=== PATIENT | female | born 1975 | race Caucasian/White ===

== ENCOUNTER 2023-11-30 09:06 | Outpatient (AMB) | payer MEDICAID, SELFPAY ==
--- NOTE | 2023-11-30 09:23 | MHC.OFFVIS ---
Intake Vital Signs 11/30/23 09:25 Height 5 ft Weight 120 lb BMI 23.4 BP 124/74 Blood Pressure Location Rt brachial Position Sitting Pulse 96 Pulse Source Pulse Oximeter Pulse Oximetry (%) 100 Oxygen Delivery Method Room Air Intake Visit Reasons: ENP- Migraines-LVM Intake Note: Patient presents for migraines . I've been having headaches for 1 year now, I get headaches every day. Allergies fluticasone [From Flonase] Allergy (Severe, Verified 11/30/23 09:26) Nose Bleed Medication List - Last Reconciled 11/30/23 by BHUPENDRA Mukherjee atorvastatin 20 mg PO BEDTIME celecoxib (Celebrex) 100 mg PO BID cetirizine (Zyrtec) 10 mg PO DAILY PRN cholecalciferol (vitamin D3) 25 mcg PO DAILY sumatriptan succinate take 1 tab at onset of headache; if no relief may repeat 1 tab after at least 2 hrs; max = 4 tabs/24 hr PO HPI HPI Comments History of Present Illness Details Left-handed 58-year-old female presents for new pt evaluation of headache disorder. Past medical history is notable for asthma, hyperlipidemia,, sleep difficulties, neck tightness, anxiety. Patient denies history of constipation, thyroid disease, seizure, constipation. Patient reports she has had severe headache on and off since she was age [age] years old. More recently, the headaches worsened after she went into perimenopause. Headache questionnaire: Previous work-up? None Typical headache characteristics: Prodrome symptoms? Unaware Aura? Denies Location, quality, characteristics? Severe top of head, bilateral temporal, or holocranial pressure or stabbing pain Associated symptoms? Photophobia, phonophobia, nausea, not right in space dizziness, activity intolerance, ponytail allodynia, tiredness. Focal weakness, Parethesias, Autonomic s/s? Denies Postdrome? Unsure Triggers? Stress, lack of sleep Any positional, valsalva, exertional, sexual activity triggers? Denies Menstrual triggers? In the past would have 1 bad headache day at the beginning of menstruation Time of day? Often wakes up with a headache at night, occurs at different times throughout the night. Duration? All day Frequency? Twenty-seven of the last 30 days How does headache impact your life? Prevents her from doing her usual activities. 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 Current preventative medication use: OTC magnesium glycinate 525 mg daily Previous preventative medication use: Has used cosmetic Botox in frontal temporal and lateral cervical regions, which has been helpful in the past. Non-pharmacological interventions: Rest She is also prone to dizziness, allergy symptoms. Sleep difficulties: Difficulty initiating and maintaining sleep. Does snore at times. Is often fatigued and tired. Usual exercise: Not much Family planning? N/a Family history of migraine or other headache disorder? Cousins and an aunt PFSH Surgical History (Updated 11/30/23 @ 09:28 by HOLLY Rangel) H/O tubal ligation Family History Father HTN (hypertension) Hyperlipidemia Mother HTN (hypertension) Hyperlipidemia Diabetes Social History (Updated 08/20/23 @ 09:14 by HOLLY Rangel) Alcohol intake: never Patient Tobacco Use Status: Current everyday Tobacco user Review of Systems Const Details: See scanned ROS form Physical Exam Vital Signs: Last Vital Signs Pulse 96 11/30/23 09:25 BP 124/74 11/30/23 09:25 Pulse Ox 100 11/30/23 09:25 Oxygen Delivery Method Room Air 11/30/23 09:25 BMI result Body Mass Index 23.4 Const Orientation/consciousness: patient oriented x3 HEENT Other: No palpable scalp tenderness. Head: Yes normocephalic Resp Effort & Inspection: normal respiratory effort and able to speak in complete sentences Neuro General: patient oriented x3 Cranial nerves: Yes CN's II-XII intact bilaterally Cognition (Neuro): normal cognition Gait exam (Neuro): Normal gait present Motor exam (neuro): 5/5 motor strength present throughout Deep tendon reflexes (DTR's): Right triceps reflex intensity grade: 2+, Left triceps reflex intensity grade: 2+, Rt Biceps (C5, C6): 2+, Left biceps reflex intensity grade: 2+, Right brachioradialis reflex intensity grade: 2+, Left brachioradialis reflex intensity grade: 2+, Right patellar reflex intensity grade: 2+ and Left patellar reflex intensity grade: 2+ Coordination: [id number] test normal, tandem gait normal and Romberg test negative Pupils: Normal pupillary reactivity/response: bilateral Psych Appearance: grossly normal Mental Status: mental status grossly normal Speech and movement: Normal speech and movement present Affect: normal affect Attitude: cooperative Thought process: Normal thought process present Assessment & Plan Assessment & Plan (1) Migraine without aura: Code(s): G43.009 - Migraine without aura, not intractable, without status migrainosus (2) Cervicalgia: Code(s): M54.2 - Cervicalgia Plan For overall headache management: Discussed importance of good self-care, including but not limited to maintaining a healthy diet, adequate fluid intake, adequate sleep, and engaging in regular physical activity. For headache triggers: Track headaches. Refer to PT for cervicalgia and headache. Monitor sleep difficulty For acute headache treatment: Discussed importance of taking acute medications at the first sign of headache, however stressed importance of avoiding acute medication overuse (especially with combined headache medications). Increase sumatriptan to 50-100 mg as needed, may repeat in 2 hours. Max 200 mg per day. Reviewed potential adverse effects of triptans, including but not limited to nausea, fatigue, chest tightness/tingling (usually passes within a few minutes), medication overuse headaches. Previous acute migraine medication trials: Sumatriptan 25 mg- ineffective. Fioricet- not effective. Acute migraine medication contraindications: None at this time For headache prevention medication: Discussed that preventative medications should be taken routinely as prescribed for best effect, it may take several weeks for full effect to take effect. Start Riboflavin 400mg qam Continue OTC Magnesium glycinate 525 mg qhs Start amitriptyline 10-20 mg q.h.s. Previous migraine prevention medication trials: Cosmetic Botox- was helpful. Migraine prevention medication contraindications: None at this time Pt to follow-up in 2 months or sooner prn. This note is constructed using voice recognition software. While every effort has been made to ensure accuracy, collet maker errors may have been included. Orders: Orders PT Evaluation and Treatment 11/30/23 G43.009 - Migraine without aura, not intractable, without status migrainosus, M54.2 - Cervicalgia Medications: New riboflavin (vitamin B2) 400 mg PO DAILY 30 tabs 6RF 30 days amitriptyline 10 - 20 mg (1 - 2 x 10 mg) PO BEDTIME 60 tabs 3RF 30 days Coding Level of Care Code New Pt Level 4 (87231) Diagnoses Migraine without aura G43.009 Cervicalgia M54.2
[2023-11-30 09:25] VITALS: BP 124/74; PULSE 96; O2SAT 100; BMI 23.4
== END 2023-11-30 10:35 | disposition home or self-care (01) ==
PROVIDERS: PCP Internal Medicine; Visit Provider Nurse Practitioner Family
DX: G43.009 Migraine without aura, not intractable, without status migrainosus (principal); M54.2 Cervicalgia
CPT/HCPCS: 99204

== ENCOUNTER → 2023-11-30 09:06 | Outpatient (BNVA) | payer MEDICAID, SELFPAY | PROVIDERS: PCP Internal Medicine; Visit Provider Nurse Practitioner Family | DX: G43.009 Migraine without aura, not intractable, without status migrainosus (principal); M54.2 Cervicalgia | CPT/HCPCS: 99212 ==

== ENCOUNTER 2024-01-24 07:41 | Outpatient (AMB) | payer MEDICAID, SELFPAY ==
--- NOTE | 2024-01-24 07:41 | A.OFFVIS_ITS ---
Intake Intake Visit Reasons: 8 wks f/u-Conf Intake Note: Patient presents for 8 weeks follow up. migraine medication not working. patient has a migraine today Allergies fluticasone [From Flonase] Allergy (Severe, Verified 01/24/24 07:41) Nose Bleed Medication List - Last Reconciled 01/24/24 by BHUPENDRA Mukherjee amitriptyline 10 - 20 mg (1 - 2 x 10 mg) PO BEDTIME 30 days atorvastatin 20 mg PO BEDTIME celecoxib (Celebrex) 100 mg PO BID cetirizine (Zyrtec) 10 mg PO DAILY PRN cholecalciferol (vitamin D3) 25 mcg PO DAILY riboflavin (vitamin B2) 400 mg PO DAILY 30 days sumatriptan succinate take 1 tab at onset of headache; if no relief may repeat 1 tab after at least 2 hrs; max = 4 tabs/24 hr PO HPI HPI Comments History of Present Illness Details 48-yr-old female presents for f/u televi gaviota visit via [employer]. Pt denies any significant interval medical changes. Pt reports she initially had good effect from starting B2 and Riboflavin, but the effect waned. Pt is now having 4 migraine headcahe days per week. Tolerating Amitriptyline 20mg well and B2 well. She never received the increased Sumatriptan. She is using Tylenol prn w/ some effect. Baseline headache characteristics: Severe top of head, bilateral temporal, or holocranial pressure or stabbing pain a/w photophobia, phonophobia, nausea, not right in space dizziness, activity intolerance, ponytail allodynia, tiredness. [facility] Surgical History H/O tubal ligation Family History Father HTN (hypertension) Hyperlipidemia Mother HTN (hypertension) Hyperlipidemia Diabetes Social History (Updated 08/20/23 @ 09:14 by HOLLY Rangel) Alcohol intake: never Patient Tobacco Use Status: Current everyday Tobacco user Physical Exam Const General: cooperative and no acute distress Orientation/consciousness: patient oriented x3 Resp Effort & Inspection: normal respiratory effort and able to speak in complete sentences Neuro General: patient oriented x3 Cognition (Neuro): normal cognition Psych Appearance: grossly normal Mental Status: mental status grossly normal Speech and movement: Normal speech and movement present Affect: normal affect Attitude: cooperative Assessment & Plan Assessment & Plan (1) Migraine without aura: Code(s): G43.009 - Migraine without aura, not intractable, without status migrainosus (2) Cervicalgia: Code(s): M54.2 - Cervicalgia Plan For overall headache management: Continue to optimize good self-care, including but not limited to maintaining a healthy diet, adequate fluid intake, adequate sleep, and engaging in regular physical activity. Track headaches Monitor cervicalgia. Monitor sleep difficulty ? For acute headache treatment: Discussed importance of taking acute medications at the first sign of headache, however stressed importance of avoiding acute medication overuse (especially with combined headache medications). Again increase sumatriptan to 50-100 mg as needed, may repeat in 2 hours. Max 200 mg per day. Reviewed potential adverse effects of triptans, including but not limited to nausea, fatigue, chest tightness/tingling (usually passes within a few minutes), medication overuse headaches. Previous acute migraine medication trials: Sumatriptan 25 mg- ineffective. Fioricet- not effective. Acute migraine medication contraindications: None at this time ? For headache prevention medication: Discussed that preventative medications should be taken routinely as prescribed for best effect, it may take several weeks for full effect to take effect. Continue Riboflavin 400mg qam Continue OTC Magnesium glycinate 525 mg qhs Increase amitriptyline from 20 mg q.h.s. to 25-50mg qhs Previous migraine prevention medication trials: Cosmetic Botox- was helpful. Migraine prevention medication contraindications: None at this time ? Pt to follow-up in 4 months or sooner prn. Medications: New sumatriptan succinate (0.5 - 1 x 100 mg) 50 - 100 mg orally at onset of headache, may repeat in 2 hrs PRN; max 2 tabs per day or 4 tabs/week (may take with Tylenol) 30 days 12 tabs 6RF migraine headache amitriptyline 25 - 50 mg (1 - 2 x 25 mg) PO BEDTIME 30 days 60 tabs 3RF Discontinued amitriptyline Discontinued Reason: Doctor's Order 10 - 20 mg (1 - 2 x 10 mg) PO BEDTIME 30 days 60 tabs 3RF Telehealth Telehealth Location of provider rendering services: practice address Location of patient: address on file Patient Identification confirmed using: Name, : Yes Telehealth method: video Patient verbally consented to treatment: Yes Patient verbally consented to billing insurance company: Yes Patient informed of any privacy concerns related to visit: Yes Minutes spent on Phone/Video with Pt.: 11 Coding Level of Care Code Tele Est Pt Level 4 (69484) Diagnoses Migraine without aura G43.009 Cervicalgia M54.2
== END 2024-01-24 10:37 | disposition home or self-care (01) ==
LOC: HO.HSMS 07:41
PROVIDERS: PCP Internal Medicine; Visit Provider Nurse Practitioner Family
DX: G43.009 Migraine without aura, not intractable, without status migrainosus (principal); M54.2 Cervicalgia
CPT/HCPCS: 99214

== ENCOUNTER → 2024-01-24 07:41 | Outpatient (BNVA) | payer MEDICAID, SELFPAY | PROVIDERS: PCP Internal Medicine; Visit Provider Nurse Practitioner Family ==

== ENCOUNTER 2024-06-26 09:52 | Outpatient (AMB) | payer MEDICAID, SELFPAY ==
[2024-06-26 10:03] VITALS: PULSE 87; O2SAT 98; BMI 24.4
--- NOTE | 2024-06-26 10:03 | MHC.OFFVIS ---
Vital Signs 06/26/24 10:03 Height 5 ft Weight 125 lb BMI 24.4 Pulse 87 Pulse Source Pulse Oximeter Pulse Oximetry (%) 98 Oxygen Delivery Method Room Air Intake Visit Reasons: 5 Month F/U Intake Note: patient presents for 5 month follow up. migraines are still an issue sumatriptan wasnt tolerated Allergies fluticasone [From Flonase] Allergy (Severe, Verified 06/26/24 10:04) Nose Bleed Medication List - Last Reconciled 06/26/24 by BHUPENDRA Mukherjee amitriptyline 25 - 50 mg (1 - 2 x 25 mg) PO BEDTIME 30 days atorvastatin 20 mg PO BEDTIME celecoxib (Celebrex) 100 mg PO BID cetirizine (Zyrtec) 10 mg PO DAILY PRN cholecalciferol (vitamin D3) 25 mcg PO DAILY riboflavin (vitamin B2) 400 mg PO DAILY 30 days sumatriptan succinate 50 - 100 mg orally at onset of headache, may repeat in 2 hrs PRN; max 2 tabs per day or 4 tabs/week (may take with Tylenol) 30 days HPI Comments Details: 48-yr-old female presents for f/u visit for migraine. Pt denies any significant interval medical changes. Pt reports she initially had good effect from starting B2 and Riboflavin, but the effect waned. Pt is now having 2-3 migraine headache days per week, but during her menses, she has increased severity and frequency of migraine attacks up to 5 days in a row. Taking Amitriptyline 25mg well and B2. Having some increased constipation since increasing Amitriptyline. Amitriptyline helps w/ sleep as well. She tried Sumatriptan 100mg x's 2, which she did not tolerate- caused severe dizziness.. She is using Tylenol prn w/ some effect. States her neck is good right now. Baseline headache characteristics: Severe top of head, bilateral temporal, or holocranial pressure or stabbing pain a/w photophobia, phonophobia, nausea, not right in space dizziness, activity intolerance, ponytail allodynia, tiredness. [facility] Surgical History H/O tubal ligation Family History Father HTN (hypertension) Hyperlipidemia Mother HTN (hypertension) Hyperlipidemia Diabetes Social History Alcohol intake: never Patient Tobacco Use Status: Current everyday Tobacco user Physical Exam Vital Signs: Last Vital Signs Pulse 87 06/26/24 10:03 Pulse Ox 98 06/26/24 10:03 Oxygen Delivery Method Room Air 06/26/24 10:03 BMI result Body Mass Index 24.4 Const General: cooperative and no acute distress Orientation/consciousness: patient oriented x3 Resp Effort & Inspection: normal respiratory effort and able to speak in complete sentences Neuro General: patient oriented x3 Cranial nerves: Yes CN's II-XII intact bilaterally Cognition (Neuro): normal cognition Psych Appearance: grossly normal Mental Status: mental status grossly normal Speech and movement: Normal speech and movement present Affect: normal affect Attitude: cooperative Assessment & Plan Assessment & Plan (1) Migraine without aura: Code(s): G43.009 - Migraine without aura, not intractable, without status migrainosus Category: Medical (2) Cervicalgia: Code(s): M54.2 - Cervicalgia Category: Medical (3) Menstrual migraine: Code(s): G43.829 - Menstrual migraine, not intractable, without status migrainosus Category: Medical Plan For overall headache management: Continue to optimize good self-care, including but not limited to maintaining a healthy diet, adequate fluid intake, adequate sleep, and engaging in regular physical activity. Track headaches Monitor cervicalgia. Monitor sleep difficulty ? For acute migraine headache treatment: Discussed importance of taking acute medications at the first sign of headache, however stressed importance of avoiding acute medication overuse. Stop sumatriptan 100 mg- not tolerated, caused dizziness. Trila Nrartriptan 2.5mg at onet of candy MR in 4 hrs, may 5mg/day. Reviewed potential adverse effects of triptans, including but not limited to nausea, fatigue, chest tightness/tingling (usually passes within a few minutes), medication overuse headaches. Previous acute migraine medication trials: Sumatriptan 25 mg- ineffective. Sumatriptan 100 mg- not tolerated, caused dizziness. Fioricet- not effective. Acute migraine medication contraindications: None at this time For menstrual migraine treatment: Trial taking Advil 400-600mg bid and Naratriptan 2.5mg prn- starting the day before onset of menses. ? For headache prevention medication: Discussed that preventative medications should be taken routinely as prescribed for best effect, it may take several weeks for full effect to take effect. Continue Riboflavin 400mg qam Continue OTC Magnesium glycinate 525 mg qhs Continue amitriptyline 25 qhs- would not increase further d/t risk for worsening constipation. Start Propranolol 10mg po bid- monitor for lightheadedness. Take water, fluids, electrolyte replacement beverage. Previous migraine prevention medication trials: Cosmetic Botox- was helpful. Migraine prevention medication contraindications: None at this time ? Pt to follow-up in 6 months or sooner prn. Medications: New propranolol 10 mg PO BID 30 days 60 tabs 3RF G43.009 - Migraine without aura, not intractable, without status migrainosus naratriptan take 1/2 - 1 tab at onset of headache; if no relief may repeat 1 tab after at least 4 hrs; max = 2 tabs/24 hrs orally PRN; 30 days 12 tabs 6RF migraine headache G43.009 - Migraine without aura, not intractable, without status migrainosus clonidine HCl 0.1 mg PO BEDTIME Changed From amitriptyline 25 - 50 mg (1 - 2 x 25 mg) PO BEDTIME 30 days 60 tabs 3RF To amitriptyline 25 mg PO BEDTIME 30 days 30 tabs 6RF Refilled riboflavin (vitamin B2) 400 mg PO DAILY 30 days 30 tabs 6RF Discontinued sumatriptan succinate Discontinued Reason: Doctor's Order (0.5 - 1 x 100 mg) 50 - 100 mg orally at onset of headache, may repeat in 2 hrs PRN; max 2 tabs per day or 4 tabs/week (may take with Tylenol) 30 days 12 tabs 6RF migraine headache Coding Level of Care Code Est Pt Level 4 (85719) Diagnoses Migraine without aura G43.009 Cervicalgia M54.2 Menstrual migraine G43.829
== END 2024-06-26 10:51 | disposition home or self-care (01) ==
PROVIDERS: PCP Internal Medicine; Visit Provider Nurse Practitioner Family
DX: G43.009 Migraine without aura, not intractable, without status migrainosus (principal); M54.2 Cervicalgia; G43.829 Menstrual migraine, not intractable, without status migrainosus
CPT/HCPCS: 99214

== ENCOUNTER → 2024-06-26 09:52 | Outpatient (BNVA) | payer MEDICAID, SELFPAY | PROVIDERS: PCP Internal Medicine; Visit Provider Nurse Practitioner Family | DX: G43.009 Migraine without aura, not intractable, without status migrainosus (principal); G43.829 Menstrual migraine, not intractable, without status migrainosus; M54.2 Cervicalgia | CPT/HCPCS: 99212 ==

== ENCOUNTER 2024-12-31 15:02 | Outpatient (AMB) | payer MEDICAID, SELFPAY ==
[2024-12-31 15:07] VITALS: BP 130/84; PULSE 104; O2SAT 95; BMI 26.0
--- NOTE | 2024-12-31 15:07 | MHC.OFFVIS ---
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: No Accompanied by: Self / Same As Patient Allergies fluticasone [From Flonase] Allergy (Severe, Verified 12/31/24 15:08) Nose Bleed Medication List - Last Reconciled 12/31/24 by BHUPENDRA Mukherjee amitriptyline 25 mg PO BEDTIME 30 days atorvastatin 20 mg PO BEDTIME celecoxib (Celebrex) 100 mg PO BID 30 days cetirizine (Zyrtec) 10 mg PO DAILY PRN cholecalciferol (vitamin D3) 25 mcg PO DAILY clonidine HCl 0.1 mg PO BEDTIME galcanezumab-gnlm (Emgality Pen) 240 mg (2 mL) subcut ONCE 30 days naratriptan take 1/2 - 1 tab at onset of headache; if no relief may repeat 1 tab after at least 4 hrs; max = 2 tabs/24 hrs orally PRN; 30 days propranolol 10 mg PO BID 30 days riboflavin (vitamin B2) 400 mg PO DAILY 30 days HPI Comments Details: Chief Complaint Migraine headache. History of Present Illness The patient is a 49-year-old female presenting with chronic migraine. Reported daily migraines have increased in frequency. Denies recent infection, accident, or known precipitating cause for the increase in migraine frequency. States her neck symptoms continue to be better. Dietary modifications were attempted. Anxiety exacerbates migraines. Propranolol caused mood disturbances and was stopped. Sumatriptan caused dizziness And naratriptan was not tolerated. Current medications include vitamin B2 and magnesium. Anxiety and menopausal symptoms are also present, affecting her condition. historically has menstrual migraine. Constipation occurs sporadically. she also endorses snoring, for sleep quality, fragmented sleep, daytime fatigue. Note so her daughter has sleep apnea and uses a CPAP machine. Family History - Daughter with sleep apnea Review of Systems - Gastrointestinal: Reports constipation And gastritis worsened by NSAIDs Headache Lifestyle Factors - Caffeine intake of half a cup daily in the morning. - Adjusted diet to very limited, restricted, consuming smaller portions food, , with coffee in the morning. Attempts to avoid rice and pasta due to perceived triggers, eating more fish like salmon, and self-preparing foods. - Anxiety influences daily life activities and migraine onset. PFSH Surgical History H/O tubal ligation Family History Father HTN (hypertension) Hyperlipidemia Mother HTN (hypertension) Hyperlipidemia Diabetes Social History Alcohol intake: never Patient Tobacco Use Status: Current everyday Tobacco user Physical Exam Vital Signs: Last Vital Signs Pulse 104 H 12/31/24 15:07 BP 130/84 12/31/24 15:07 Pulse Ox 95 12/31/24 15:07 Oxygen Delivery Method Room Air 12/31/24 15:07 BMI result Body Mass Index 26.0 Const General: cooperative and no acute distress Orientation/consciousness: patient oriented x3 Resp Effort & Inspection: normal respiratory effort and able to speak in complete sentences Neuro General: patient oriented x3 Cranial nerves: Yes CN's II-XII intact bilaterally Cognition (Neuro): normal cognition Psych Appearance: grossly normal Mental Status: mental status grossly normal Speech and movement: Normal speech and movement present Affect: normal affect Attitude: cooperative Assessment & Plan Assessment & Plan (1) Migraine without aura: Code(s): G43.009 - Migraine without aura, not intractable, without status migrainosus Category: Medical (2) Cervicalgia: Code(s): M54.2 - Cervicalgia Category: Medical (3) Menstrual migraine: Code(s): G43.829 - Menstrual migraine, not intractable, without status migrainosus Category: Medical Plan During our discussion, I explained that persistent daily migraines might be exacerbated by anxiety and hormonal changes from menopause. We explored strategies to optimize migraine prophylaxis, such as trying a CGRP MaB, which is a migraine specific treatment strategy. The necessity of dietary nourishment was stressed to prevent migraine triggers. I instructed on a sleep study to exclude apnea, a potential migraine factor. The patient agreed to trial Celebrex given its lower risk of gastrointestinal problems relative to other NSAIDs. We discussed follow-up care to assess for improved symptoms and refine treatment strategies. Patient was informed and verbally consented to the use of an ambient scribe for clinic note documentation during this visit. Plan: For overall headache management: Continue to optimize good self-care, including but not limited to maintaining a healthy diet, adequate fluid intake, adequate sleep, and engaging in regular physical activity. Track headaches Monitor cervicalgia. Patient advised to undergo home sleep study to assess for sleep apnea ? For acute migraine headache treatment: Discussed importance of taking acute medications at the first sign of headache, however stressed importance of avoiding acute medication overuse. Stop sumatriptan 100 mg- not tolerated, caused dizziness. Stop Nartriptan 2.5mg-not tolerated. Use Tylenol 650-a 1000 mg every 4-6 hours as needed. May use Celebrex 100 mg twice a day as needed, as this may be better tolerated than ibuprofen or naproxen. Previous acute migraine medication trials: Sumatriptan 25 mg- ineffective. Sumatriptan 100 mg- not tolerated, caused dizziness. Naratriptan not tolerated. Fioricet- not effective. Acute migraine medication contraindications: None at this time For menstrual migraine treatment: Trial taking Advil 400-600mg bid and Naratriptan 2.5mg prn- starting the day before onset of menses. ? For headache prevention medication: Discussed that preventative medications should be taken routinely as prescribed for best effect, it may take several weeks for full effect to take effect. Continue Riboflavin 400mg qam Continue OTC Magnesium glycinate 525 mg qhs Continue amitriptyline 25 qhs- would not increase further d/t risk for worsening constipation. Discontinue Propranolol 10mg po bid- not tolerated. Start Emgality 120mg/ml auto-injection: Loading dose: 240mg (2 120mg/ml auto-injections) via subcutaneous injection in 2 different sites). Then 30 days after loading dose, start Maintenance dose: 120mg (120mg/ml autoinjector) subcutaneous injection every month. 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 Important considerations: Emgality will likely require insurance prior authorization prior to receiving it from the pharmacy. Potential side effects include allergic reaction and injection site reactions. Emgality injection training educational video is available to view on [employer] Store Emgality in the refrigerator in it's original packaging in order to protect from light. Remove Emgality at least 1 hour prior to taking the injection. Emgality can be left out of the fridge for?up to 7 days at a temperature not above 86?F. If either of these conditions are exceeded, then Emgality must be thrown away. Once Emgality has been stored out of refrigeration, do not place it back in the refrigerator. Previous migraine prevention medication trials: Cosmetic Botox- was helpful. Propranolol 10 mg p.o. b.i.d.-not tolerated. Migraine prevention medication contraindications: Would avoid Aimovig or atogepant due to risk for worsening constipation. ? Pt to follow-up in 6 months or sooner prn. Orders: Orders RT home sleep study Today G47.9 - Sleep disorder, unspecified, R06.83 - Snoring, R53.83 - Other fatigue Medications: New galcanezumab-gnlm (Emgality Pen) Loading dose: 120 mg subcu injection x2 in alternate sites (total 240 mg). To be followed by maintenance dose of 120 mg subcu q.month. 240 mg (2 mL) subcut ONCE 2 mL 0RF 30 days Changed From celecoxib (Celebrex) 100 mg PO BID To celecoxib (Celebrex) 100 mg PO BID 60 caps 4RF pain 30 days Coding Level of Care Code Est Pt Level 4 (01187) Diagnoses Migraine without aura G43.009 Cervicalgia M54.2 Menstrual migraine G43.829
--- OUTSIDE RECORDS SUMMARY | 2024-12-31 18:12 | XMS_ITS | Clinical Summary ---
Author Organization [facility] it Address [id number] [place] [id number] Care Team Providers [employer] Organizer Name Role Phone Unavailable Primary Care Provider Unavailabl e Social History Tobacco Use Types Packs/Day Years Used Date Smoking Tobacco: Never Assessed Comments Unknown Sex and Gender Information Value Date Recorded Sex Assigned at Not on file Legal Sex Female 6:34 AM EST Gender Identity Not on file Sexual Orientation Not on file Plan of Treatment Health Maintenance Due Date Last Done Comments DTaP,Tdap,and Td Vaccines (1 - Tdap) 1992 Hepatitis B Vaccines (1 of 3 - 19+ 3-dose series) 1992 Cervical Cancer Screening: P ap Smear 1994 Colorectal Cancer Screening: Colonoscopy 10/01/2022 Depression Screening 10/01/2022 HIV Screening 10/01/2022 Hepatitis C Screening 10/01/2022 Social Influencers of Health Screening 10/01/2022 Breast Cancer Screening 12/25/2022 12/25/19 21, 12/22/2019 Pneumococcal Vaccine: 50+ Years (1 of 1 - PCV) 2023 Zoster Vaccines (1 of 2) 2023 COVID-19 Vaccine ( - 2023-2 5 season) 2024 Influenza Vaccine (#1) 2024 HIB Vaccines Aged Out No longer eligi ble based on patient's age to complete this topic HPV Vaccines Aged Out No longer eligi ble based on patient's age to complete this topic Hepatitis A Vaccines Aged Out No long er eligible based on patient's age to complete this topic IPV Vaccines Aged Out No longer eligi ble based on patient's age to complete this topic MMR Vaccines Aged Out No longer eligi ble based on patient's age to complete this topic Meningococcal ACWY Vaccine Aged Out N o longer eligible based on patient's age to complete this topic Meningococcal B Vacine Aged Out No lo nger eligible based on patient's age to complete this topic Pneumococcal Vaccine: Pediatrics (0 to 5 Years) and At-Risk Patients (6 to 64 Years) Aged Out No longer eligible b ased on patient's age to complete this topic RSV Immunization Patients Under 20 months Aged Out No longer eligible b ased on patient's age to complete this topic Varicella Vaccines Aged Out No longer eligible based on patient's age to complete this topic Procedures Procedure Name Priority Date/Time Associated Diagnosis Comments [facility] SCREENING DIGITAL Routine 12/25/2020 12:56 PM EST Encounter for screening mammogram for malignant neoplasm of breast from Last 3 Months or Most Recently Relevant to Health Maintenance Results * [facility] SCREENING DIGITAL (12/25/2020 12:56 PM EST) Anatomical Region Laterality Modality Mammography 12/23/2020 8:54 AM EST Narrative 12/25/2020 12:56 PM EST [facility] Diagnostic Imaging Department [address] [place] [address] Patient: ??BELIA CANNON ?/Age/Sex: 1975 - 45 - F Unit#: ??[id number] ? Location/Status: ??SPDIMAM/REG CLI ? Mnemonic/Ordering Site: ??DIGSC/SPMAM Ordering Physician: ??DOM OLGUIN MD Ying Screening Digital - 12/25/20 - 1020 EXAM: [facility] Screening Digital EXAM DATE AND TIME: 12/25/2020 10:21 AM HISTORY: ??Annual screening mammography COMPARISON: ??12/02/2019, 06/02/2015 TECHNIQUE: CC and MLO views of both breasts were obtained using full field digital mammography. Bilateral digital breast tomosynthesis was performed in the MLO projection. Computer aided detection with the [employer]-H was employed. TISSUE DENSITY: c. The breasts are heterogeneously dense, which may obscure small masses. FINDINGS: In the 10 o'clock position of the right breast, 7.5 cm from the nipple there is a new 6 x 6 mm partially obscured nodule with posteriorly convex borders requir ing spot compression and CC tomography. The left breast has no suspicious masses, grouped microcalcifications, or areas of architectural distortion are seen. The skin and vascularity are unremarkable. IMPRESSION: New 6 x 6 mm right breast mass with posteriorly convex borders partially obscured by overlying parenchyma requiring CC tomography and spot compression. Ultrasound should follow as clinically indicated. A negative mammogram in the presence of a clinically suspicious palpable abnormality does not preclude the possibility of malignancy or alter the indications for biopsy. BI-RADS: ??Category 0: Incomplete - Need Additional Imaging Evaluation RECOMMENDATION(S): 1: Special mammographic view(s) needed RIGHT as soon as possible [id number], [id number], [id number] Dictating Physician: ??ROBI WALLACE MD Electronically Signed by: ??ROBI WALLACE MD Dic Date/Time: ??12/25/20 1249 Sign date/Time: ??12/25/20 1256 Procedure Note Deepali Wallace MD - 10/17/2022 [facility] Diagnostic Imaging Department [address] [place] [address] [id number] Patient: BELIA CANNON.O.B./Age/Sex: 1975 - 45 - F Unit#: [id number] [facility] Mn[facility]onic/Ordering Site: [facility] Ordering Physician: DOM OLGUIN MD [facility] Screening Digital - 12/25/20 - 1020 EXAM: [facility] Screening Digital EXAM DATE AND TIME: 12/25/2020 10:21 AM HISTORY: Annual screening mammography COMPARISON: 12/02/2019, 06/02/2015 TECHNIQUE: CC and MLO views of both breasts were obtained using fullfield digital mammography. Bilateral digital breast tomosynthesis was performedin the MLO projection. Computer aided detection with the [employer] employed. TISSUE DENSITY: c. The breasts are heterogeneously dense, which mayobscure small masses. FINDINGS: In the 10 o'clock position of the right breast, 7.5 cm from the nipplethere is a new 6 x 6 mm partially obscured nodule with posteriorly convex bordersrequir ing spot compression and CC tomography. The left breast has no suspicious masses, grouped microcalcifications, orareas of architectural distortion are seen. The skin and vascularity areunremarkable. IMPRESSION: New 6 x 6 mm right breast mass with posteriorly convex borders partially obscured by overlying parenchyma requiring CC tomography and spotcompression. Ultrasound should follow as clinically indicated. A negative mammogram in the presence of a clinically suspicious palpable abnormality does not preclude the possibility of malignancy or alter the indications for biopsy. BI-RADS: Category 0: Incomplete - Need Additional Imaging Evaluation RECOMMENDATION(S): 1: Special mammographic view(s) needed RIGHT as soon as possible [id number], [id number], [id number] Dictating Physician: ROBI WALLACE MD Electronically Signed by: ROBI WALLACE MD Dic Date/Time: 12/25/20 1249 Sign date/Time: 12/25/20 1365 Dom STERN BI PROCEDURES Final Resul t from Last 3 Months or Most Recently Relevant to Health Maintenance
== END 2024-12-31 15:48 | disposition home or self-care (01) ==
PROVIDERS: PCP Internal Medicine; Visit Provider Nurse Practitioner Family
DX: G43.009 Migraine without aura, not intractable, without status migrainosus (principal); M54.2 Cervicalgia; G43.829 Menstrual migraine, not intractable, without status migrainosus
CPT/HCPCS: 99214

== ENCOUNTER → 2024-12-31 15:02 | Outpatient (BNVA) | payer MEDICAID, SELFPAY | PROVIDERS: PCP Internal Medicine; Visit Provider Nurse Practitioner Family | DX: M54.2 Cervicalgia (principal); G43.829 Menstrual migraine, not intractable, without status migrainosus; G47.9 Sleep disorder, unspecified; R06.83 Snoring; R53.83 Other fatigue | CPT/HCPCS: 99212 ==

== ENCOUNTER → 2025-03-17 10:37 | Outpatient (REF) | payer MEDICAID, SELFPAY ==
--- OUTSIDE RECORDS SUMMARY | 2025-03-17 11:55 | XMS_ITS | Clinical Summary ---
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 Name Role Phone JaniaDom tim Primary Care Provider [phone] Social History Tobacco Use Types Packs/Day Years Used Date Smoking Tobacco: Never Assessed Comments Unknown Sex and Gender Information Value Date Recorded Sex Assigned at Not on file Legal Sex Female 6:34 AM EST Gender Identity Not on file Sexual Orientation Not on file Plan of Treatment Health Maintenance Due Date Last Done Comments Hepatitis B Vaccines (1 of 3 - 19+ 3-dose series) 1992 Cervical Cancer Screening: P ap Smear 1994 Pneumococcal Vaccine: 50+ Years (2 of 2 - PCV) 02/04/2020 02/03/2019 Pneumococcal Vaccine: Pediatrics (0 to 5 Years) and At-Risk Patients (6 to 64 Years) (2 of 2 - PCV) 02/04/2020 02/03/2019 Colorectal Cancer Screening: Colonoscopy 10/01/2022 Depression Screening 10/01/2022 HIV Screening 10/01/2022 Hepatitis C Screening 10/01/2022 Social Influencers of Health Screening 10/01/2022 Breast Cancer Screening 12/25/2022 12/25/19 21, 12/22/2019 Zoster Vaccines (1 of 2) 2023 COVID-19 Vaccine (2023-2 5 season) 2024 11/16/2021, 02/25/2021, 02/04/2021 Influenza Vaccine (Season Ended) 2025 DTaP,Tdap,and Td Vaccines (2 - Td or Tdap) 02/03/2029 02/03/2019 Cholesterol Screening (Lipid Panel) 02/09/2030 02/09/2025 HIB Vaccines Aged Out No longer eligi [...] age to complete this topic Meningococcal B Vaccine Aged Out No l onger eligible based on patient's age to complete this topic RSV Immunization Patients Under 20 months Aged Out No longer eligible b ased on patient's age to complete this topic Varicella Vaccines Aged Out No longer eligible based on patient's age to complete this topic Procedures Procedure Name Priority Date/Time Associated Diagnosis Comments CBC WITH AUTO DIFFERENTIAL Routine 02/09/2025 2:12 PM EDT ALD (adrenoleukodystro phy) ([facility] V24) Active asthma Weight gain Routine general medical examination at a health care facility HEMOGLOBIN A1C Routine 02/09/2025 2:12 PM EDT ALD (adrenoleukodystro phy) ([facility] V24) Active asthma Weight gain Routine general medical examination at a health care facility CBC AND DIFFERENTIAL Routine 02/09/2025 2:12 PM EDT ALD (adrenoleukodystro phy) ([facility] V24) Active asthma Weight gain Routine general medical examination at a health care facility THYROID STIMULATING HORMONE Routine 02/09/2025 2:12 PM EDT ALD (adrenoleukodystro phy) ([facility] V24) Active asthma Weight gain Routine general medical examination at a health care facility BASIC METABOLIC PANEL Routine 02/09/2025 2:12 PM EDT ALD (adrenoleukodystro phy) ([facility] V24) Active asthma Weight gain Routine general medical examination at a health care facility ASPARTATE AMINOTRANSFERASE Routine 02/09/2025 2:12 PM EDT ALD (adrenoleukodystro phy) ([facility] V24) Active asthma Weight gain Routine general medical examination at a health care facility ALANINE AMINOTRANSFERASE Routine 2:12 PM EDT ALD (adrenoleukodystro phy) ([facility] V24) Active asthma Weight gain Routine general medical examination at a health care facility LIPID PANEL WITH REFLEX TO DIRECT LDL Routine 02/09/2025 2:12 PM EDT ALD (adrenoleukodystro phy) ([facility] V24) Active asthma Weight gain Routine general medical examination at a health care facility YING SCREENING DIGITAL Routine 12/25/2020 12:56 PM EST Encounter for screening mammogram for malignant neoplasm of breast from Last 3 Months or Most Recently Relevant to Health Maintenance Results * (ABNORMAL) Lipid panel with reflex to direct LDL (02/09/2025 2:12 PM EDT) Cholesterol 240(H) 0 - 200 mg/dL LAB CHEMISTRY METHOD 02/09/2025 5:06 PM [facility] Triglycerides 395(H) 0 - 150 mg/dL LAB CHEMISTRY METHOD 02/09/2025 5:06 PM [facility] HDL 39(L) >=40 mg/dL LAB CHEMISTRY METHOD 02/09/2025 5:06 PM [facility] LDL Calculated 122(H) 0 - 100 mg/dL LAB CHEMISTRY METHOD 02/09/2025 5:06 PM [facility] VLDL Cholesterol Hunter 79 mg/dL LAB CHEMISTRY METHOD 02/09/2025 5:06 PM [facility] Non HDL Chol. (LDL+VLDL) 201(H) <145 mg/dL LAB CHEMISTRY METHOD 02/09/2025 5:06 PM [facility] Chol/HDL Ratio 6.2(H) 0.0 - 4.4 LAB CHEMISTRY METHOD 02/09/2025 5:06 PM EDT [facility] Blood Venous blood specimen / Unknown Venipuncture / Unknown 02/09/2025 2:12 PM EDT 02/09/2025 2:12 PM EDT us [facility] Diaz [employer] SALESPERSON LAB BLOOD ORDERABLES Final Resul t [facility] [address] [place] [address], [place] [phone] * (ABNORMAL) CBC auto differential (02/09/2025 2:12 PM EDT) WBC 11.3(H) 4.8 - 10.8 K/mcL LAB HEMETOLOGY METHOD 02/09/2025 3:42 PM EDT [facility] RBC 4.30 3.80 - 4.80 M/mcL LAB HEMETOLOGY METHOD 02/09/2025 3:42 PM EDT [facility] Hemoglobin 13.5 11.5 - 16.0 g/dL LAB HEMETOLOGY METHOD 02/09/2025 3:42 PM EDT [facility] Hematocrit 41.4 35.0 - 47.0 % LAB HEMETOLOGY METHOD 02/09/2025 3:42 PM EDT [facility] MCV 96.7 79.0 - 98.0 FL LAB HEMETOLOGY METHOD 02/09/2025 3:42 PM EDT [facility] MCH 31.5 27.0 - 32.0 pcg LAB HEMETOLOGY METHOD 02/09/2025 3:42 PM EDT [facility] MCHC 32.6 32.0 - 37.0 g/dL LAB HEMETOLOGY METHOD 02/09/2025 3:42 PM EDT [facility] RDW 14.2 11.0 - 15.0 % LAB HEMETOLOGY METHOD 02/09/2025 3:42 PM EDT [facility] Platelets 308 130 - 400 K/mcL LAB HEMETOLOGY METHOD 02/09[facility]2025 3[facility] MPV 9.8 7.0 - 11.0 FL LAB HEMETOLOGY METHOD 02/09/2025 3:42 PM [facility] NRBC 0.0 <1.0 % LAB HEMETOLOGY METHOD 02/09/2025 3:42 [facility] NRBC Absolute 0.00 <0.10 K/mcL LAB HEMETOLOGY METHOD 02/09/2025 3:42 PM [facility] Neutrophils Relative 72.0 % LAB HEMETOLOGY METHOD 02/09/2025 3:42 PM [facility] Lymphocytes Relative 22.2 % LAB HEMETOLOGY METHOD 02/09/2025 3:42 PM [facility] Monocytes Relative 4.1 % LAB HEMETOLOGY METHOD 02/09/2025 3:42 PM [facility] Eosinophils Relative 0.7 % LAB HEMETOLOGY METHOD 02/09/2025 3:42 PM [facility] Basophils Relative 0.5 % LAB HEMETOLOGY METHOD 02/09/2025 3:42 PM [facility] Immature Granulocytes Relative 0.5 % LAB HEMETOLOGY METHOD 02/09/2025 3:42 PM [facility] Neutrophils Absolute 8.15(H) 1.50 - 7.00 K/mcL LAB HEMETOLOGY METHOD 02/09/2025 3:42 PM [facility] Lymphocytes Absolute 2.52 1.00 - 5.00 K/mcL LAB HEMETOLOGY METHOD 02/09/2025 3:42 PM [facility] Monocytes Absolute 0.46 0.20 - 1.00 K/mcL LAB HEMETOLOGY METHOD 02/09/2025 3:42 PM EDT [facility] Eosinophils Absolute 0.08 0.00 - 0.50 K/[facility] LAB HEMETOLOGY METHOD 02/09/2025 3:42 PM EDT [facility] Basophils Absolute 0.06 0.00 - 0.20 K/[facility] LAB HEMETOLOGY METHOD 02/09/2025 3:42 PM EDT [facility] Immature Granulocytes Absolute 0.06(H) 0.00 - 0.03 K/[facility] LAB HEMETOLOGY METHOD 02/09/2025 3:42 PM EDT [facility] Blood Venous blood specimen / Unknown Venipuncture / Unknown 02/09/2025 2:12 PM EDT 02/09/2025 2:12 PM EDT [facility] [employer] SALESPERSON LAB BLOOD ORDERABLES Final Resul t Performing Organization Address City/[facility]/ZIP Co de Phone Number [facility] [address] [place] [address], [place] [phone] * (ABNORMAL) Alanine aminotransferase (02/09/2025 2:12 PM EDT) ALT (SGPT) 65(H) 10 - 60 unit/L LAB CHEMISTRY METHOD 02/09/2025 5:06 PM EDT [facility] Blood Venous blood specimen / Unknown Venipuncture / Unknown 02/09/2025 2:12 PM EDT 02/09/2025 2:12 PM EDT [facility] Diaz [employer] SALESPERSON LAB BLOOD ORDERABLES Final Resul t [facility] [address] [place] [address], [place] [phone] * Aspartate aminotransferase (02/09/2025 2:12 PM EDT) AST (SGOT) 39 10 - 42 unit/L LAB CHEMISTRY METHOD 02/09/2025 5:06 PM EDT [facility] Blood Venous blood specimen / Unknown Venipuncture / Unknown 02/09/2025 2:12 PM EDT 02/09/2025 2:12 PM EDT us Garber Diaz [employer] SALESPERSON LAB BLOOD ORDERABLES Final Resul t Performing Organization Address City/[facility]/ZIP Co de Phone Number [facility] [address] [place] [address], [place] [phone] * Thyroid stimulating hormone (02/09/2025 2:12 PM EDT) TSH 1.15 0.40 - 4.00 mcIU/mL LAB CHEMISTRY METHOD 02/09/2025 5:45 PM EDT [facility] Blood Venous blood specimen / Unknown Venipuncture / Unknown 02/09/2025 2:12 PM EDT 02/09/2025 2:12 PM EDT us Garber Diaz LAB BLOOD ORDERABLES Final Resul t Performing Organization Address [facility]/ZIP Co de Phone Number [facility] [address] [place] [address], [place] [phone] * Hemoglobin A1c (02/09/2025 2:12 PM EDT) Hemoglobin A1C 6.0 <6.5 % LAB CHEMISTRY METHOD 02/09/2025 10:13 PM EDT [facility] Mean Bld Glu Estim. 126 mg/dL LAB CHEMISTRY METHOD 02/09/2025 10:13 PM EDT [facility] Blood Venous blood specimen / Unknown Venipuncture / Unknown 02/09/2025 2:12 PM EDT 02/09/2025 2:12 PM EDT us Garber Diaz [employer] SALESPERSON LAB BLOOD ORDERABLES Final Resul t [facility] [address] [place] [address], [place] [phone] * Basic metabolic panel (02/09/2025 2:12 PM EDT) Sodium 139 133 - 145 mmol/L LAB CHEMISTRY METHOD 02/09/2025 5:06 PM [facility] Potassium 4.2 3.5 - 5.5 mmol/L LAB CHEMISTRY METHOD 02/09/2025 5:06 PM [facility] Chloride 108 96 - 110 mmol/L LAB CHEMISTRY METHOD 02/09/2025 5:06 PM [facility] CO2 26 21 - 32 mmol/L LAB CHEMISTRY METHOD 02/09/2025 5:06 PM [facility] Anion Gap 5 3 - 11 LAB CHEMISTRY METHOD 02/09/2025 5:06 PM [facility] Glucose 96 70 - 100 mg/dL LAB CHEMISTRY METHOD 02/09/2025 5:06 PM [facility] BUN 11 5 - 25 mg/dL LAB CHEMISTRY METHOD 02/09/2025 5:06 PM [facility] Creatinine 0.62 0.50 - 1.10 mg/dL LAB CHEMISTRY METHOD 02/09/2025 5:06 PM [facility] eGFR 108 >=60 mL/min/1. 73m2 LAB CHEMISTRY METHOD 02/09/2025 5:06 PM [facility] Comment:Calculation based on the??Chronic Kidney Disease Epidemiology Collaboration (CKD-EPI) equation refit??without adjustment for race. BUN/Creatinine Ratio 17.7 LAB CHEMISTRY METHOD 02/09/2025 5:06 PM [facility] Calcium 9.3 8.5 - 10.5 mg/dL LAB CHEMISTRY METHOD 02/09/2025 5:06 PM [facility] Blood Venous blood specimen / Unknown Venipuncture / Unknown 02/09/2025 2:12 PM EDT 02/09/2025 2:12 PM EDT us Garber Diaz [employer] AND [employer]ILETRIES SALESPERSON LAB BLOOD ORDERABLES Final Resul t [facility] [address] [place] [address], * YING SCREENING DIGITAL (12/25/2020 12:56 PM EST) Anatomical Region Laterality Modality Mammography 12/23/2020 8:54 AM EST Narrative 12/25/2020 12:56 PM EST [facility] Diagnostic Imaging Department [address] [place] [address] Patient: ??DAVIS,NURYSMARTINCELINA ?/Age/Sex: 1975 - 45 - F Unit#: ??[id number] ? Location/Status: ??SPDIMAM/REG CLI ? Mnemonic/Ordering Site: ??DIGSC/SPMAM Ordering Physician: ??DOM OLGUIN MD Ying Screening Digital - 12/25/20 - 0 EXAM: Ying Screening Digital EXAM DATE AND TIME: 12/25/2020 10:21 AM HISTORY: ??Annual screening mammography COMPARISON: ??12/02/2019, 06/02/2015 TECHNIQUE: CC and MLO views of both breasts were obtained using full field digital mammography. Bilateral digital breast tomosynthesis was performed in the MLO projection. Computer aided detection with the Fyber 7.2-H was employed. TISSUE DENSITY: c. The breasts [...] view(s) needed RIGHT as soon as possible [id number], [id number] 3340F, 7025F Dictating Physician: ??ROBI WALLACE MD Electronically Signed by: ??ROBI WALLACE MD Dic Date/Time: ??12/25/20 1249 Sign date/Time: ??12/25/20 1256 Procedure Note Deepali Wallace MD - 10/17/2022 [facility] Diagnostic Imaging Department [address] [place], [place] [id number] Patient: BELIA CANNON /Age/Sex: 1975 - 45 - F Unit#: [id number] [facility]ing Site[facility] Ordering Physician: DOM OLGUIN MD [facility] Screening Digital - 12/25/20 - 1020 EXAM: Ying Screening Digital EXAM DATE AND TIME: 12/25/2020 10:21 AM HISTORY: Annual screening mammography COMPARISON: 12/02/2019, 06/02/2015 TECHNIQUE: CC and MLO views of both breasts were obtained using fullfield digital mammography. Bilateral digital breast tomosynthesis was performedin the MLO projection. Computer aided detection with the [employer].2-OpenLabelas employed. TISSUE DENSITY: c. The breasts are [...] view(s) needed RIGHT as soon as possible [id number], [id number] 3340F, 7025F Dictating Physician: ROBI WALLACE MD Electronically Signed by: ROBI WALLACE MD Dic Date/Time: 12/25/20 1249 Sign date/Time: 12/25/20 1256 Dom Olguin DO IM BI PROCEDURES Final Resul t from Last 3 Months or Most Recently Relevant to Health Maintenance Insurance MEDICAID - [place] Care Teams Expanding Machine Operator Relationship Specialty Start Date End Date Dom Olguin DO [address] [place] [phone] PCP - General Internal Medicine 02/09/25
== END ==
LOC: HO.SL 10:37
PROVIDERS: PCP Internal Medicine; Visit Provider Nurse Practitioner Family
DX: G47.9 Sleep disorder, unspecified (principal); R06.83 Snoring; R53.83 Other fatigue
CPT/HCPCS: 95806

== ENCOUNTER → 2025-03-17 10:59 | Outpatient (BNV) | payer MEDICAID, SELFPAY | PROVIDERS: PCP Internal Medicine; Visit Provider Psychiatry & Neurology Neurology | DX: R06.83 Snoring (principal) | CPT/HCPCS: 95806 ==

== ENCOUNTER 2025-07-06 09:39 | Outpatient (AMB) | payer MEDICAID, SELFPAY ==
[2025-07-06 09:23] VITALS: BP 140/100; PULSE 110; O2SAT 96; BMI 26.4
--- NOTE | 2025-07-06 09:23 | A.OFFVIS_ITS ---
Vital Signs 07/06/25 09:23 Height 5 ft Weight 135 lb BMI 26.4 BP 140/100 H Blood Pressure Location Rt brachial Position Sitting Pulse 110 H Pulse Source Pulse Oximeter Pulse Oximetry (%) 96 Oxygen Delivery Method Room Air Intake Visit Reasons: 6 mo follow up Intake Note: Patient presents follow up migraine medication Tube Test Technician Required: No Accompanied by: Self / Same As Patient Allergies fluticasone (From Flonase) Allergy (Severe, Verified 07/06/25 09:24) Nose Bleed Medication List - Last Reconciled 07/06/25 by BHUPENDRA Mukherjee amitriptyline 25 mg PO BEDTIME 90 days atorvastatin 20 mg PO BEDTIME gvripglrwp-xvsxbcsijkzgv-ielw 50-325-40 mg 1 tab PO Q4H PRN 30 days celecoxib (Celebrex) 100 mg PO BID 30 days cetirizine (Zyrtec) 10 mg PO DAILY PRN cholecalciferol (vitamin D3) 25 mcg PO DAILY clonidine HCl 0.1 mg PO BEDTIME coenzyme Q10 400 mg PO DAILY 90 days galcanezumab-gnlm (Emgality Pen) 120 mg subcut Q30D 30 days onabotulinumtoxinA (Botox) 200 units IM ONCE 12 weeks propranolol 10 mg PO BID 30 days riboflavin (vitamin B2) 400 mg PO DAILY 90 days HPI Comments Details: A 49-year-old female presents for follow-up of migraine. Pt reports that she started Emgality in February, and continued through May; however, she has not received the June dose yet, which was due 4-5 days ago. ?Unfortunately, the patient reports that the Emgality only helped for a few days after the injection.? Furthermore, she reports she has had a typical migraine attack for the last 8 days despite trialing all of her usual as-needed treatments. ?She denies any precipitating causes for this recent prolonged attack, specifically denies recent fever, infection, or accident. ?She states it is just the nature of having migraine. She reports she is currently experiencing 20-25 migraine days per month. She states the naratriptan was ineffective.? She feels that Fioricet works best to break these prolonged migraine headache attacks. She is still trying to avoid foods that she feels trigger her migraine attacks.? She notes that she drinks a tiny cup of coffee in the morning because otherwise she will have more severe migraine attacks. 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 Interval 03/17/2025 home sleep study, consisting of 481 minutes of recorded sleep time, showed AHI 0.4 per hour, O2 veronica 86%, SpO2 under 88% times 0.7 minute and under 90% times 212 minutes with average SpO2 90%. ?Snoring was observed for 9% of the study time. ?Of note, the patient was in an upright position for the en tirety of the sleep study. ? After reviewing the HST, the patient was advised to undergo an in-lab sleep study for further assessment.? However, the patient states that when she arrived for the sleep study, she experienced some miscommunication that she might not need the sleep study, and she was not sure she could sleep, so she left without even starting the study. She states she does have clonazepam 1 mg at home to help with sleep. Current supplement use for migraine prevention and energy promotion: * Ashwaganda- for anxiety * Vitamin D * Elizabeth * Magnesium * Riboflavin qod- as it causes constipation if taken every day PFSH Surgical History H/O tubal ligation Family History Father HTN (hypertension) Hyperlipidemia Mother HTN (hypertension) Hyperlipidemia Diabetes Social History Alcohol intake: never Patient Tobacco Use Status: Current everyday Tobacco user Physical Exam Vital Signs: Last Vital Signs Pulse 110 H 07/06/25 09:23 BP 140/100 H 07/06/25 09:23 Pulse Ox 96 07/06/25 09:23 Oxygen Delivery Method Room Air 07/06/25 09:23 BMI result Body Mass Index 26.4 Const General: cooperative and no acute distress Orientation/consciousness: patient oriented x3 Resp Effort & Inspection: normal respiratory effort and able to speak in complete sentences Neuro Other: Photophobia General: patient oriented x3 Cranial nerves: Yes CN's II-XII intact bilaterally Cognition (Neuro): normal cognition Psych Appearance: grossly normal Mental Status: mental status grossly normal Speech and movement: Normal speech and movement present Affect: normal affect Attitude: cooperative Assessment & Plan Assessment & Plan (1) Chronic migraine without aura: Code(s): G43.709 - Chronic migraine without aura, not intractable, without status migrainosus Category: Medical Qualifiers: Status migrainosus presence: with status migrainosus Intractability: intractable Qualified Code(s): G43.711 - Chronic migraine without aura, intractable, with status migrainosus (2) Cervicalgia: Code(s): M54.2 - Cervicalgia Category: Medical (3) Menstrual migraine: Code(s): G43.829 - Menstrual migraine, not intractable, without status migrainosus Category: Medical Qualifiers: Status migrainosus presence: without status migrainosus Intractability: not intractable Qualified Code(s): G43.829 - Menstrual migraine, not intractable, without status migrainosus (4) Sleep difficulties: Code(s): G47.9 - Sleep disorder, unspecified Category: Medical (5) Snoring: Code(s): R06.83 - Snoring Category: Medical (6) Fatigue: Code(s): R53.83 - Other fatigue Category: Medical Qualifiers: Fatigue type: unspecified Qualified Code(s): R53.83 - Other fatigue Plan For overall headache management: * Continue to optimize good self-care, including but not limited to maintaining a healthy diet, adequate fluid intake, adequate sleep, and engaging in regular physical activity. * Track headaches * Monitor cervicalgia. For sleep difficulties: * Reviewed HST, results of which were inconclusive- though notable for SpO2 under 90% for 44% of study time despite patient being in upright position throughout the sleep study * Patient again advised to undergo follow-up in-lab sleep study to further assess for sleep apnea and Periodic limb movement of sleep (PLMS) in setting of history of anemia. * We will reorder in-lab PSG * Patient may take her clonazepam and amitriptyline prior to the sleep study ? For acute migraine headache treatment: It is important to take acute medications at the first sign of headache, however stressed importance of avoiding acute medication overuse. * Retrial Fioricet 1-2 tabs every 4-6 hours as needed for severe migraine headache attack * Patient aware there maybe an axa-vh-tqyjse cost for this * Use Tylenol 650-a 1000 mg every 4-6 hours as needed. * May use Celebrex 100 mg twice a day as needed, as this may be better tolerated than ibuprofen or naproxen. Previous acute migraine medication trials: Sumatriptan 25 mg- ineffective. Sumatriptan 100 mg- not tolerated, caused dizziness. Naratriptan not tolerated. Fioricet- previously not effective. Acute migraine medication contraindications: None at this time For menstrual migraine treatment: * Advil 400-600mg twice a day- sparingly ? For headache prevention medication: Preventive medications should be taken routinely as prescribed for best effect, it may take several weeks for full effect to take effect. * Continue Riboflavin 400mg qam * Continue OTC Magnesium glycinate 525 mg qhs * Continue amitriptyline 25 qhs- would not increase further d/t risk for worsening constipation. * Start Co Q10 400 mg daily in the morning, take with a higher fat food * Start Botox 155 units IM, injected in 31 sites across the forehead scalp and upper trapezius muscles, every 12 weeks * Discontinue Emgality 120mg/ml, as it has been ineffective after 4 consecutive months of use Previous migraine prevention medication trials: Cosmetic Botox- was helpful. Propranolol 10 mg p.o. b.i.d.-not tolerated. Emgality-ineffective. Amitriptyline 25 mg x's> 6 months- ineffective and dose can not be increased as above. Migraine prevention medication contraindications: Would avoid Aimovig or atogepant due to risk for worsening constipation. ? Will follow-up upon review of above and patient to follow-up in clinic in 6 months or sooner prn. Medications: New egcuncdmbi-xqpucldrgwmig-lycn 50-325-40 mg max 2 tabs per day or 4 tabs per week 1 tab PO Q4H PRN 20 tabs 2RF headache 30 days onabotulinumtoxinA (Botox) inject 155 units IM across forehead, scalp, and neck 200 units IM ONCE 1 ea 3RF 12 weeks G43.709 - Chronic migraine without aura, not intractable, without status migrainosus clonazepam (Klonopin) administer 30 minutes before bedtime 1 mg PO BEDTIME coenzyme Q10 Daily in a.m.. Take with higher fat food 400 mg PO DAILY 90 caps 3RF 90 days Changed From riboflavin (vitamin B2) 400 mg PO DAILY 30 days 30 tabs 6RF To riboflavin (vitamin B2) 400 mg PO DAILY 90 tabs 3RF 90 days From amitriptyline 25 mg PO BEDTIME 30 days 30 tabs 6RF To amitriptyline 25 mg PO BEDTIME 90 tabs 1RF 90 days Discontinued naratriptan Discontinued Reason: Doctor's Order take 1/2 - 1 tab at onset of headache; if no relief may repeat 1 tab after at least 4 hrs; max = 2 tabs/24 hrs orally PRN; 30 days 12 tabs 6RF migraine headache G43.009 - Migraine without aura, not intractable, without status migrainosus Coding Level of Care Code Est Pt Level 4 (14839) Diagnoses Intractable chronic migraine without aura and with status migrainosus G43.711 Status migrainosus presence: with status migrainosus Intractability: intractable Cervicalgia M54.2 Menstrual migraine without status migrainosus, not intractable G43.829 Status migrainosus presence: without status migrainosus Intractability: not intractable Sleep difficulties G47.9 Snoring R06.83 Fatigue, unspecified type R53.83 Fatigue type: unspecified
--- OUTSIDE RECORDS SUMMARY | 2025-07-06 11:02 | XMS_ITS | Clinical Summary ---
Author Organization [address] [facility] Address [address] [place] [address] Phone Care Team Providers Care Layboy Tender Name Role Phone JaniadoreenmarkKrish matthew Primary Care Provider [phone] Encounters Date Type Department Care Team Description 06/05/2025 12:40 PM EDT - 06/05/2025 11:59 PM EDT [facility] [address] [id number] Encounter for screening mammogram for breast cancer Discharge Disposition: Home or Self Care from Last 3 Months Social History Tobacco Use Types Packs/Day Years Used Date Smoking Tobacco: Never Assessed Comments No Sex and Gender Information Value Date Recorded Sex Assigned at Not on file Legal Sex Female 6:34 AM EST Gender Identity Not on file Sexual Orientation Not on file Obstetrics History Last Filed Vital Signs Vital Sign Reading Time Taken Comments Blood Pressure - - Pulse - - Temperature - - Respiratory Rate - - Oxygen Saturation - - Inhaled Oxygen Concentration - - Weight 59 kg (130 lb) 06/05/2025 12:58 PM EDT Height 152.4 cm (5') 06/05/2025 12:58 PM EDT Body Mass Index 25.39 06/05/2025 12:58 PM EDT Plan of Treatment Health Maintenance Due Date Last Done Comments Cervical Cancer Screening: P ap Smear 1994 Pneumococcal Vaccine: 50+ Years (2 of 2 - PCV) 02/04/2020 02/03/2019 Colorectal Cancer Screening: Colonoscopy 10/01/2022 HIV Screening 10/01/2022 Hepatitis C Screening 10/01/2022 Social Influencers of Health Screening 10/01/2022 Zoster Vaccines (1 of 2) 2023 Depression Screening 10/29/2024 Hepatitis B Vaccines (2 of 2 - CpG 2-dose series) 05/21/2025 04/23/2025 COVID-19 Vaccine (4 - 2024-2 6 season) 2025 11/16/2021, 02/25/2021, 02/04/2021 Influenza Vaccine (#1) 2025 Breast Cancer Screening 06/05/2027 06/05/20, 12/25/2020, 12/22/2019 DTaP,Tdap,and Td Vaccines (2 - Td or [...] Procedure Name Priority Date/Time Associated Diagnosis Comments MG MAMMO DIGITAL SCREENING W HARDEEP BILAT Routine 06/05/2025 1:05 PM EDT Encounter for screening mammogram for breast cancer CBC WITH AUTO DIFFERENTIAL Routine 05/08/2025 9:22 AM EDT Right knee pain Swelling C-REACTIVE PROTEIN Routine 05/08/2025 9: 22 AM EDT Right knee pain Swelling SEDIMENTATION RATE Routine 05/08/2025 9: 22 AM EDT Right knee pain Swelling URIC ACID Routine 05/08/2025 9:22 AM EDT Right knee pain Swelling CBC AND DIFFERENTIAL Routine 05/08/2025 9:22 AM EDT Right knee pain Swelling BASIC METABOLIC PANEL Routine 05/08/2025 9:22 AM EDT Right knee pain Swelling LIPID PANEL WITH REFLEX TO DIRECT LDL Routine 02/09/2025 2:12 PM EDT ALD (adrenoleukodystrop hy) ([facility]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 BI-RADS CATEGORY: 1 - NEGATIVE RECOMMENDATION: Screening bilateral mammogram is recommended in 1 year. Mammo Location: [facility], [address] [place] [address], [id number], . -------- FINAL REPORT -------- Dictated By: Osmar Bradford Dictated Date: 06/07/2025 09:56 ET Assigned Physician: Osmar Bradford Reviewed and Electronically Signed By: Osmar Bradford Signed Date: 06/07/2025 13:08 ET Workstation ID: [id number] Transcribed By: Self Edit Transcribed Date: 06/07/2025 09:56 ET Narrative 06/07/2025 1:08 PM EDT CLINICAL: 49 years old, Female, routine annual exam. COMPARISON: 01/26/2023. TECHNIQUE: Bilateral MLO and CC views were obtained digitally with 3-D mammogram (digital breast tomosynthesis). Computer-aided detection was utilized in evaluation of this exam (CAD). FINDINGS: There is no evidence of suspicious mass or architectural distortion. No worrisome calcifications are evident. There has been no significant change from prior exam(s). BREAST DENSITY: B - There are scattered areas of fibroglandular density. Procedure Note Osmar Bradford MD - 06/07/2025 CLINICAL: 49 years old, Female, routine annual exam. COMPARISON: 01/26/2023. TECHNIQUE: Bilateral MLO and CC views were obtained digitally with 3-Dmammogram (digital breast tomosynthesis). Computer-aided detection wasutilized in evaluation of this exam (CAD). FINDINGS: There is no evidence of suspicious mass or architectural distortion. Noworrisome calcifications are evident. There has been no significantchange from prior exam(s). BREAST DENSITY: B - There are scattered areas of fibroglandular density. IMPRESSION: Benign. BI-RADS CATEGORY: 1 - NEGATIVE RECOMMENDATION: Screening bilateral mammogram is recommended in 1 year. Mammo Location: [facility], [address] [place] [address], [facility], . -------- FINAL REPORT -------- Dictated By: Osmar Bradford Dictated Date: 06/07/2025 09:56 ET Assigned Physician: Osmar Bradford Reviewed and Electronically Signed By: Osmar Bradford Signed Date: 06/07/2025 13:08 ET Workstation ID: [id number] Transcribed By: Self Edit Transcribed Date: 06/07/2025 09:56 ET us Self Referral Sppl IMG BI PROCEDURES Final Resul t * (ABNORMAL) CBC auto differential (05/08/2025 9:22 AM EDT) WBC 9.6 4.8 - 10.8 K/[facility] LAB HEMETOLOGY METHOD 05/08/2025 11:07 AM EDT [facility] RBC 4.60 3.80 - 4.80 M/[facility] LAB HEMETOLOGY METHOD 05/08/2025 11:07 AM EDT [facility] Hemoglobin 14.4 11.5 - 16.0 g/dL LAB HEMETOLOGY METHOD 05/08/2025 11:07 AM [facility] Hematocrit 44.1 35.0 - 47.0 % LAB HEMETOLOGY METHOD 05/08/2025 11:07 AM [facility] MCV 95.5 79.0 - 98.0 FL LAB HEMETOLOGY METHOD 05/08/2025 11:07 AM [facility] MCH 31.2 27.0 - 32.0 pcg LAB HEMETOLOGY METHOD 05/08/2025 11:07 AM [facility] MCHC 32.7 32.0 - 37.0 g/dL LAB HEMETOLOGY METHOD 05/08/2025 11:07 AM [facility] RDW 13.8 11.0 - 15.0 % LAB HEMETOLOGY METHOD 05/08/2025 11:07 AM [facility] Platelets 293 130 - 400 K/mcL LAB HEMETOLOGY METHOD 05/08/2025 11:07 AM [facility] MPV 10.0 7.0 - 11.0 FL LAB HEMETOLOGY METHOD 05/08/2025 11:07 AM [facility] NRBC 0.0 <1.0 % LAB HEMETOLOGY METHOD 05/08/2025 11:07 AM [facility] NRBC Absolute 0.00 <0.10 K/mcL LAB HEMETOLOGY METHOD 05/08/2025 11:07 AM [facility] Neutrophils Relative 69.5 % LAB HEMETOLOGY METHOD 05/08/2025 11:07 AM [facility] Lymphocytes Relative 22.7 % LAB HEMETOLOGY METHOD 05/08/2025 11:07 AM [facility] Monocytes Relative 5.2 % LAB HEMETOLOGY METHOD 05/08/2025 11:07 AM EDT [facility] Eosinophils Relative 1.2 % LAB HEMETOLOGY METHOD [facility] Basophils Relative 0.7 % LAB HEMETOLOGY METHOD 05/08/2025 11:07 AM [facility] Immature Granulocytes Relative 0.7 % LAB HEMETOLOGY METHOD 05/08/2025 11:07 AM EDT [facility] Neutrophils Absolute 6.69 1.50 - 7.00 K/mcL LAB HEMETOLOGY METHOD 05/08/2025 11:07 [facility] Lymphocytes Absolute 2.19 1.00 - 5.00 K/mcL LAB HEMETOLOGY METHOD 05/08/2025 11:07 AM [facility] Monocytes Absolute 0.50 0.20 - 1.00 K/mcL LAB HEMETOLOGY METHOD 05/08/2025 11[facility]07 [facility] Eosinophils Absolute 0.12 0.00 - 0.50 K/mcL LAB HEMETOLOGY METHOD 05/08/2025 11:07 AM [facility] Basophils Absolute 0.07 0.00 - 0.20 K/mcL LAB HEMETOLOGY METHOD 05/08/2025 11:07 AM [facility] Immature Granulocytes Absolute 0.07(H) 0.00 - 0.03 K/mcL LAB HEMETOLOGY METHOD 05/08/2025 11:07 [facility] Blood Venous blood specimen / Unknown Venipuncture / Unknown 05/08/2025 9:22 AM EDT 05/08/2025 9:22 AM EDT us Jaquan Dove LAB BLOOD ORDERABLES Final Resul t [facility] [address] [place] [address], * Sedimentation rate (05/08/2025 9:22 AM EDT) Sed Rate 23 0 - 30 mm/hr LAB HEMETOLOGY METHOD 05/08/2025 11:17 AM EDT [facility] Blood Venous blood specimen / Unknown Venipuncture / Unknown 05/08/2025 9:22 AM EDT 05/08/2025 9:22 AM EDT Jaquan Derrell LAB BLOOD ORDERABLES Final Resul t Performing Organization Address City/[facility]/ZIP Co de Phone Number [facility] [address] [place] [address], [place] [phone] * (ABNORMAL) C-reactive protein (05/08/2025 9:22 AM EDT) C-Reactive Protein 1.24(H) <=0.50 mg/dL LAB CHEMISTRY METHOD 05/08/2025 11:39 AM EDT [facility] Blood Venous blood specimen / Unknown Venipuncture / Unknown 05/08/2025 9:22 AM EDT 05/08/2025 9:22 AM EDT us Duranie Derrell LAB BLOOD ORDERABLES Final Resul t [facility] [address] [place] [address], [place] [phone] * Uric acid (05/08/2025 9:22 AM EDT) Uric Acid 4.3 3.1 - 7.8 mg/dL LAB CHEMISTRY METHOD 05/08/2025 11:39 AM EDT [facility] Blood Venous blood specimen / Unknown Venipuncture / Unknown 05/08/2025 9:22 AM EDT 05/08/2025 9:22 AM EDT Jaquan Dove LAB BLOOD ORDERABLES Final Resul t [facility] [address] [place] [address], * Basic metabolic panel (05/08/2025 9:22 AM EDT) Sodium 138 133 - 145 mmol/L LAB CHEMISTRY METHOD 05/08/2025 11:39 AM [facility] Potassium 4.1 3.5 - 5.5 mmol/L LAB CHEMISTRY METHOD 05/08/2025 11:39 AM [facility] Chloride 106 96 - 110 mmol/L LAB CHEMISTRY METHOD 05/08/2025 11:39 AM [facility] CO2 24 21 - 32 mmol/L LAB CHEMISTRY METHOD 05/08/2025 11:39 AM [facility] Anion Gap 8 3 - 11 LAB CHEMISTRY METHOD 05/08/2025 11:39 AM [facility] Glucose 78 70 - 100 mg/dL LAB CHEMISTRY METHOD 05/08/2025 11:39 AM [facility] BUN 12 5 - 25 mg/dL LAB CHEMISTRY METHOD 05/08/2025 11:39 AM [facility] Creatinine 0.63 0.50 - 1.10 mg/dL LAB CHEMISTRY METHOD 05/08/2025 11:39 AM [facility] eGFR 108 >=60 mL/min/1. 73m2 LAB CHEMISTRY METHOD 05/08/2025 11:39 AM [facility] Comment:Calculation based on the Chronic Kidney Disease Epidemiology Collaboration (CKD-EPI) equation refit without adjustment for race. BUN/Creatinine Ratio 19.0 LAB CHEMISTRY METHOD 05/08/2025 11:39 AM [facility] Calcium 9.0 8.5 - 10.5 mg/dL LAB CHEMISTRY METHOD 05/08/2025 11:39 AM EDT [facility] Blood Venous blood specimen / Unknown Venipuncture / Unknown 05/08/2025 9:22 AM EDT 05/08/2025 9:22 AM EDT us Jaquan Derrell LAB BLOOD ORDERABLES Final Resul t Performing Organization Address City/[facility]/ZIP Co de Phone Number [facility] [address] [place] [address], [place] [phone] * (ABNORMAL) Lipid panel with reflex to direct LDL (02/09/2025 2:12 PM EDT) Cholesterol 240(H) 0 - 200 mg/dL LAB CHEMISTRY METHOD 02/09/2025 5:06 PM EDT [facility] Triglycerides 395(H) 0 - 150 mg/dL LAB CHEMISTRY METHOD 02/09/2025 5:06 PM T [facility] HDL 39(L) >=40 mg/dL LAB CHEMISTRY METHOD 02/09/2025 5:06 PM EDT [facility] LDL Calculated 122(H) 0 - 100 mg/dL LAB CHEMISTRY METHOD 02/09/2025 5:06 PM [facility] VLDL Cholesterol Hunter 79 mg/dL LAB CHEMISTRY METHOD 02/09/2025 5:06 PM [facility] Non HDL Chol. (LDL+VLDL) 201(H) <145 mg/dL LAB CHEMISTRY METHOD 02/09/2025 5:06 PM EDT [facility] Chol/HDL Ratio 6.2(H) 0.0 - 4.4 LAB CHEMISTRY METHOD 02/09/2025 5:06 PM T [facility] Blood Venous blood specimen / Unknown Venipuncture / Unknown 02/09/2025 2:12 PM EDT 02/09/2025 2:12 PM EDT us Garber Diaz [employer] LAB BLOOD ORDERABLES Final Resul t Performing Organization Address City/[facility]/ZIP Co de Phone Number [facility] [address] [place] [address], from Last 3 Months or Most Recently Relevant to Health Maintenance Insurance MEDICAID - [place] Care Teams Layboy Tender Relationship Specialty Start Date End Date Krish Mayo DO [address] [place] [phone] PCP - General Internal Medicine 02/09/25
== END 2025-07-06 10:48 | disposition home or self-care (01) ==
LOC: HO.HSMS 09:40
PROVIDERS: PCP Internal Medicine; Visit Provider Nurse Practitioner Family
DX: G43.711 Chronic migraine without aura, intractable, with status migrainosus (principal); M54.2 Cervicalgia; G43.829 Menstrual migraine, not intractable, without status migrainosus; G47.9 Sleep disorder, unspecified; R06.83 Snoring; R53.83 Other fatigue
CPT/HCPCS: 99214

== ENCOUNTER → 2025-07-06 09:39 | Outpatient (BNVA) | payer MEDICAID, SELFPAY | PROVIDERS: PCP Internal Medicine; Visit Provider Nurse Practitioner Family | DX: G43.711 Chronic migraine without aura, intractable, with status migrainosus (principal); M54.2 Cervicalgia; G43.829 Menstrual migraine, not intractable, without status migrainosus; G47.9 Sleep disorder, unspecified; R06.83 Snoring; R53.83 Other fatigue | CPT/HCPCS: 99212 ==